=== PATIENT | female | born 1940 | race Caucasian/White ===

== ENCOUNTER 2023-08-28 06:00 | Day surgery (SDC) | payer MEDICARE, BC ==
[~2023-08-28 06:00] MED LIST: Lactated Ringers 1,000 ML IV SCH; Phenylephrine 1% 10 MG/ML SDV ONE; Propofol 200 MG/20 ML SDV ONE; Sodium Chloride 0.9% 10 ML Syringe FLUSH PRN; Sodium Chloride 0.9% 10 ML Syringe FLUSH SCH; dexmedeTOMIDine HCl 200 MCG/2 ML SDV ONE; fentaNYL 100 MCG/2 ML SDV ONE
[2023-08-28] MEDS ORDERED: Ropivacaine 0.5% 5 MG/ML 30 ML SDV ONE (06:11)
[2023-08-28] MEDS ORDERED: EPINEPHrine 1 MG/ML SDV ONE (06:11)
[2023-08-28] MEDS: Lactated Ringers 1,000 ML IV SCH (06:20)
[2023-08-28] MEDS ORDERED: ceFAZolin 2 GM Vial ONE (06:39)
[2023-08-28] MEDS ORDERED: Lidocaine 1% 5 ML VIAL ONE (06:39)
[2023-08-28] MEDS ORDERED: Rocuronium 50 MG/5 ML Vial ONE (06:39)
[2023-08-28] MEDS ORDERED: Ondansetron 4 MG/2 ML SDV ONE (07:01)
[2023-08-28] MEDS ORDERED: fentaNYL 100 MCG/2 ML SDV ONE ×2 (07:35→08:25)
[2023-08-28] MEDS ORDERED: Lactated Ringers 1,000 ML IV ONE (08:00)
[2023-08-28] MEDS ORDERED: Neostigmine Methylsulfate 10 MG/10 ML MDV ONE (08:00)
[2023-08-28] MEDS: Morphine 8 MG, EPINEPHrine 0.3 MG, Cefuroxime 750 MG, Ketorolac 30 MG, Sodium Chloride ... PRN (08:08)
[2023-08-28] MEDS: Vancomycin 1 GM SDV ONE (08:15)
[2023-08-28] MEDS: Tranexamic Acid 1,000 MG/10 ML Vial ONE (08:15)
[2023-08-28] MEDS ORDERED: Naloxone 0.4 MG/ML SDV IVPUSH PRN (09:22)
[2023-08-28] MEDS: fentaNYL 100 MCG/2 ML SDV IVPUSH PRN (09:34)
[2023-08-28] MEDS: Acetaminophen/HYDROcodone 325-5 MG Tab PO SCH (11:18)
[2023-08-28] MEDS: Ondansetron 4 MG/2 ML SDV IVPUSH SCH (15:25)
== END 2023-08-28 17:25 | disposition home or self-care (01) ==
LOC: JD.SDS 06:00
PROVIDERS: ATTEND Orthopaedic Surgery
DX: M17.11 Unilateral primary osteoarthritis, right knee (principal); I10 Essential (primary) hypertension; E78.2 Mixed hyperlipidemia; R73.03 Prediabetes; I25.10 Atherosclerotic heart disease of native coronary artery without angina pectoris; I65.23 Occlusion and stenosis of bilateral carotid arteries; Z79.82 Long term (current) use of aspirin; Z79.899 Other long term (current) drug therapy
CPT/HCPCS: 0055T; 27447; 64447; 73560; 97110; 97116; 97161; A9270; C1713; C1776; J0171; J0690; J0697; J1885; J2270; J2405; J2704; J2710; J2795; J3010; J3370; J7030; J7120; 01402; 99100; J1596; J2371; J3490